=== PATIENT | female | born 1950 | race Caucasian/White ===

== ENCOUNTER 2020-12-21 10:02 | Outpatient (RCR) | payer BC, SELFPAY ==
[2020-12-21 11:33] VITALS: BP 148/74; PULSE 63; RESP 20; TEMP 37.1; O2SAT 98
[2020-12-21] MEDS: diphenhydrAMINE HCl CAP 25 MG CAPSULE PO (11:35)
[2020-12-21] MEDS: FAMOTIDINE 20 MG TABLET PO (11:35)
[2020-12-21] MEDS: ACETAMINOPHEN 325 MG TABLET 650 MG PO (11:35)
--- NOTE | 2020-12-21 12:10 | PC.NURSE ---
Patient received Moderna vaccines for COVID in Feb and Mar 2020.
[2020-12-21 13:15] VITALS: BP 173/86; PULSE 72; RESP 20; TEMP 37; O2SAT 98
--- NOTE | 2020-12-24 09:52 | PC.NURSE ---
Called patient to follow-up regarding COVID antibody infusion treatment. Patient states they are feeling better but did experience night sweats the evening following treatment. No side effects at this time.
== END 2020-12-21 15:45 | disposition home or self-care (01) ==
LOC: AMCINF 10:02
PROVIDERS: PCP Physician Assistant Medical; Referring Provider Physician Assistant Medical; Visit Provider Internal Medicine Hematology & Oncology
DX: Z23 Encounter for immunization (principal); U07.1 COVID-19; J44.9 Chronic obstructive pulmonary disease, unspecified
CPT/HCPCS: A9270; M0243; Q0243

== ENCOUNTER → 2021-03-06 12:30 | Outpatient (CLI) | payer BC, SELFPAY ==
--- NOTE | ~2021-03-06 | US_ITS ---
EXAMINATION: US retroperitoneal comp DATE: 03/06/2021 12:53 INDICATION: Chronic cystitis without hematuria TECHNIQUE: Multiple ultrasound grayscale images of the kidneys were obtained. COMPARISON: None. FINDINGS: The right kidney measures 10.2 x 3.9 x 4.7 cm. The left kidney measures 12.6 x 5.0 x 4.3 cm. The kidn eys demonstrate normal echogenicity. 2.8 cm anechoic cyst at the interpolar region of the left kidney . There is no hydronephrosis in either kidney. No stones identified. The bladder is normal. IMPRESSION: 2.8 cm left renal cyst. Otherwise normal kidneys with no hydronephrosis. Reviewed, dictated and finalized at location A. ING SPECIALIST
--- NOTE | ~2021-03-06 | XR_ITS ---
EXAMINATION: XR abdomen/kub 1V DATE: 03/06/2021 13:28 INDICATION: Chronic cystitis without hematuria. TECHNIQUE: A supine view of the abdomen on 2 radiographs was obtained. COMPARISON: CT abdomen and pelvis 02/11/2019 FINDINGS: There are no dilated loops of bowel. There are surgical clips in the abdomen. IMPRESSION: 1. No visible urolithiasis. Reviewed, dictated and finalized at location A. [employer] IMPRESSION: 1. No visible urolithiasis.
== END ==
PROVIDERS: PCP Physician Assistant Medical; Visit Provider Nurse Practitioner Adult Health
DX: N30.20 Other chronic cystitis without hematuria (principal); N28.1 Cyst of kidney, acquired
CPT/HCPCS: 74018; 76770

== ENCOUNTER → 2021-03-06 12:31 | Outpatient (CLI) | payer BC, SELFPAY ==
--- NOTE | ~2021-03-06 | MM_ITS ---
EXAMINATION: MM screening [facility] BI w ludin HISTORY: Screening TECHNIQUE: Craniocaudal and mediolateral oblique 3-D tomosynthesis images were obtained and synthetic 2-D images were generated. CAD analysis was submitted and interpreted. COMPARISON: Comparison to multiple prior studies sequentially, with oldest reviewed study dated 09/2011. BREAST PARENCHYMAL COMPOSITION: There are scattered areas of fibroglandular density. FINDINGS: There is no evidence of suspicious mass, calcification, or architectural distortion to sugg est malignancy in either breast. There has been no suspicious interval change. IMPRESSION: 1. No mammographic evidence of malignancy. 2. Recommend routine screening mammography in one year. BI-RADS Category 1: Negative Reviewed, dictated and finalized at location A. [facility] [employer]
== END ==
PROVIDERS: PCP Physician Assistant Medical; Visit Provider Physician Assistant Medical
DX: Z12.31 Encounter for screening mammogram for malignant neoplasm of breast (principal)
CPT/HCPCS: 77063; 77067

== ENCOUNTER → 2023-04-16 11:22 | Outpatient (CLI) | payer BC, SELFPAY ==
--- NOTE | ~2023-04-16 | XR_ITS ---
Right foot Technique: AP, oblique, and lateral views were obtained. Clinical History: Pain Findings: No acute fracture or dislocation is seen. Old, healed fracture deformity of the second meta tarsal shaft noted. Hallux valgus noted. Joint spaces are preserved without erosive or degenerative c hange. Soft tissues are unremarkable. Impression: No acute abnormality. Chronic, healed fracture deformity second metatarsal shaft. Hallux valgus. Reviewed, dictated and finalized at location . [employer] [employer] THER[employer] Impression: No acute abnormality. Chronic, healed fracture deformity second metatarsal shaft. Hallux valgus.
== END ==
PROVIDERS: PCP Chiropractor; Visit Provider Chiropractor
DX: M79.671 Pain in right foot (principal); M20.11 Hallux valgus (acquired), right foot
CPT/HCPCS: 73630

== ENCOUNTER 2023-08-18 11:25 | Outpatient (CLI) | payer BC, SELFPAY ==
--- NOTE | ~2023-08-18 | MM_ITS ---
EXAMINATION: MM screening [facility] BI w ludin HISTORY: Screening mammogram TECHNIQUE: Craniocaudal and mediolateral oblique 3-D tomosynthesis images were obtained and synthetic 2-D images were generated. CAD analysis was submitted and interpreted. COMPARISON: 03/06/2021, 06/17/2017 BREAST PARENCHYMAL COMPOSITION:Not Dense. There are scattered areas of fibroglandular density. FINDINGS: No suspicious mass, calcification, or architectural distortion are identified in either chris ast to suggest malignancy. There has been no suspicious interval change. IMPRESSION: No mammographic evidence of malignancy. Recommend routine screening mammography in one year. BI-RADS Category 1: Negative Reviewed, dictated and finalized at location .
== END 2023-08-18 11:26 ==
LOC: MICIMG 11:26
PROVIDERS: PCP Physician Assistant Medical; Visit Provider Physician Assistant Medical
DX: Z12.31 Encounter for screening mammogram for malignant neoplasm of breast (principal)
CPT/HCPCS: 77063; 77067

== ENCOUNTER 2024-08-23 10:38 | Outpatient (CLI) | payer BC, SELFPAY ==
--- NOTE | ~2024-08-23 | DEXA_ITS ---
Bone Density Report Name: TI ABERNATHY Age: 74 Sex: Female Ethnicity: White Date of : 1950 Indication: postmenopausal; screening for osteoporosis; hysterectomy; Referring Provider: MILLER HERRERA PA-C Study: Bone densitometry was performed. Exam Date: August 23, 2024 Accession number: [id number] Bone Density: Region BMD T-score Z-score Classification AP Spine(L1-L4) 1.004 -0.4 1.9 Normal Femoral Neck (Left) 0.722 -1.1 0.9 Osteopenia Total Hip (Left) 0.919 -0.2 1.5 Normal Femoral Neck (Right) 0.764 -0.8 1.2 Normal Total Hip (Right) 0.984 0.3 2.0 Normal Total Hip Mean 0.951 0.1 1.8 Normal World Health Organization criteria for BMD impression classify patients as: Normal (T-score at or above -1.0), Osteopenia (T-score between -1.0 and -2.5), or Osteoporosis (T-score at or below -2.5). 10-year Fracture Risk(1): Major Osteoporotic Fracture 8.7% Hip Fracture 1.2% Reported Risk Factors: [place] (), Neck BMD=0.722, BMI=39.3 (1) FRAX(R) Version 3.08. Fracture probability calculated for an untreated patient. Fracture probability may be lower if the patient has received treatment. Previous Exams: -- Region Exam Age BMD T-score BMD Change BMD Change Date g/cm2 vs Baseline vs Previous -- AP Spine (L1-L4) 08/23/2024 74 1.004 -0.4 2.0%# 2.0%# 08/14/2008 58 0.985 -0.6 Total Hip(Left) 08/23/2024 74 0.919 -0.2 -4.0%# -4.0%# 08/14/2008 58 0.957 0.1 Total Hip(Right) 08/23/2024 74 0.984 0.3 -1.5%# -1.5%# 08/14/2008 58 0.999 0.5 -- *Denotes significance at 95% confidence level, LSC for AP Spine = 0.022 g/cm2, LSC for Total Hip = 0.027 g/cm2 # Denotes dissimilar scan types or analysis methods Clinical Information Provided by Patient: Has used the following medications: HRT (i.e. estrogen/hormone therapy), Vitamin D Has the following medical conditions: Hysterectomy Patient maximum height was 63 Menopause Age: 33 No regular weight bearing exercise Does not regularly consume dairy products Drinks caffeinated beverages Onset of menses at age 17 Number of children 2 Impression: The patient has low bone mass, based on the Left Femoral Neck T-score. The patient has an estimated ten-year risk of hip fracture of 1.2% and an estimated ten-year risk of major fracture of 8.7%, based on the WHO FRAX algorithm. Unable to evaluate interval change due to the use of different scan modes. Discussion: BONE DENSITY IS LOW AT ONE OR MORE SKELETAL SITES. This patient's lowest T-score is low at one or more skeletal sites. It meets the World Health Organization's (WHO) criteria for ?low bone mass? (T-score between -1.0 and -2.5). The patient's 10-year risk of fracture as calculated by FRAX is less than the threshold where pharmacological therapy is recommended by the National Osteoporosis Foundation (NOF). However, all treatment decisions require clinical judgment and consideration of individual patient factors, including patient preferences, comorbidities, previous drug use, risk factors not captured in the FRAX model (e.g., frailty, falls, vitamin D deficiency, increased bone turnover, interval significant decline in bone density) and possible under or overestimation of fracture risk by FRAX. The patient should follow a healthful lifestyle (good nutrition with adequate calcium and vitamin D, and appropriate weight-bearing exercise). Follow-Up: Consider repeating this study in 2 to 3 years to reassess this patient's status, or sooner if there is some new clinical indication. Reported by: CHRISSY on 08/23/2024 11:17:00 AM. Reviewed, dictated and finalized at location A.
--- NOTE | ~2024-08-23 | MM_ITS ---
EXAMINATION: MM screening [facility] BI w ludin HISTORY: Screening TECHNIQUE: Craniocaudal and mediolateral oblique 3-D tomosynthesis images were obtained and synthetic 2-D images were generated. CAD analysis was submitted and interpreted. COMPARISON: Comparison to multiple prior studies sequentially, with oldest reviewed study dated 05/29. BREAST PARENCHYMAL COMPOSITION: Not dense: There are scattered areas of fibroglandular density. FINDINGS: There is no evidence of suspicious mass, calcification, or architectural distortion to sugg est malignancy in either breast. There has been no suspicious interval change. IMPRESSION: 1. No mammographic evidence of malignancy. 2. Recommend routine screening mammography in one year. BI-RADS Category 1: Negative Reviewed, dictated and finalized at location A.
== END 2024-08-23 10:39 | disposition home or self-care (01) ==
LOC: MICIMG 10:39
PROVIDERS: PCP Physician Assistant Medical; Visit Provider Physician Assistant Medical
DX: Z12.31 Encounter for screening mammogram for malignant neoplasm of breast (principal); E28.39 Other primary ovarian failure; Z78.0 Asymptomatic menopausal state; M85.852 Other specified disorders of bone density and structure, left thigh
CPT/HCPCS: 77063; 77067; 77080